=== PATIENT | female | born 1980 | race African-American/Black ===

== ENCOUNTER 2017-11-16 06:55 | Day surgery (SDC) | payer BC ==
[2017-11-14 15:48] LABS: BASOPHILS 0.3 % (0-2); EOSINOPHILS 0.8 % (0-7); HEMATOCRIT 31.5 % (36.0-48.0); HEMOGLOBIN 9.7 g/dL (12-16); IMMATURE GRANULOCYTES 0.1 % (0-5); LYMPHOCYTES 21.7 % (15-50); MCH 24.4 pg (26.0-34.0); MCHC 30.8 g/dL (31.0-37.0); MCV 79.1 fL (80.0-100.0); MEAN PLATELET VOLUME 11.2 fL (7.4-10.4); MONOCYTES 5.5 % (2-11); NEUTROPHILS 71.6 % (40-80); RBC 3.98 10x6/uL (4.00-5.40); RDW 15.6 % (11.5-14.5); WBC 7.3 10x3/uL (4.8-10.8)
[2017-11-14 15:53] LABS: PLATELET COUNT 162 10x3/uL (130-400)
[~2017-11-16] VITALS: Ht 162.6 cm; Wt 78.5 kg
--- NOTE | ~2017-11-16 | OP ---
PATIENT NAME: NATASHA LA MEDICAL RECORD: [id number] :78 LOCATION:[facility] ADMISSION DATE: SURGEON: TURNER GALVIN MD DATE OF OPERATION: 11/16/2017 PREOPERATIVE DIAGNOSIS: Endometrial thickening on ultrasound. POSTOPERATIVE DIAGNOSIS: Endometrial polyp. PROCEDURE: Hysteroscopy, dilation and curettage. SURGEON: Turner Galvin MD ESTIMATED BLOOD LOSS: Minimal. INTRAVENOUS FLUIDS: Per anesthesia record. HYSTEROSCOPIC FLUID LOSS: Approximately 100 cc of 0.9 normal saline. SPECIMENS: Endometrial curettings. FINDINGS: Multiple posterior endometrial polyps in the background of an otherwise normal appearing endometrial canal. COMPLICATIONS: None apparent. PROCEDURE IN DETAIL: The patient was taken to the operating room where general anesthesia was achieved without difficulty. The patient was prepped and draped in normal sterile fashion in the dorsal lithotomy position in the [facility]. At this point, the bladder was drained of approximately 50 cc of clear urine. Graves speculum was placed into the vagina. The cervix was identified and grasped on its anterior lip with a single tooth tenaculum. Uterus sounded to approximately 8-1/2 cm. At this point, the cervix was dilated to approximately 7-mm and hysteroscope was introduced into the uterine cavity. Bilateral ostia were identified. A broad-based posterior polyp was noted on posterior aspect of the endometrial canal. Hysteroscope was removed and a curette was then used to remove this polyp and to perform curettage in all 4 sections of the uterine of the endometrial canal. The tenaculum was removed with no bleeding noted from the tenaculum sites. The patient tolerated the procedure well, was transported to postanesthesia recovery stable without incident. TRANSINT:[id number] Voice Confirmation ID: [id number] DOCUMENT ID: [id number] TURNER GALVIN MD at 1757 CC: [id number] DICTATION DATE: 11/16/17 0955 LINEMARKER: 11/16/17 1014 [facility] 11/16/[address] [address]
[~2017-11-16 06:55] MED LIST: EZFE 200200 MG PO; MULTI-DAY VITAM1 TAB PO; PERCOCET 10/3251 TA1 PO; PRENATAL COMPLE1 TAB PO; PROTONIX40 MG PO
[2017-11-16 08:05] LABS: HCG URINE NEGATIVE (NEGATIVE)
[2017-11-16 08:06] VITALS: BP 134/76; Ht 162.6 cm; Wt 78.5 kg
== END 2017-11-16 11:40 | disposition home or self-care (01) ==
LOC: D.OPS 06:55 → D.PAN 09:00 → D.OPS 09:00
PROVIDERS: Anesthesiology; Obstetrics & Gynecology
DX: N84.0 Polyp of corpus uteri (principal); Z01.812 Encounter for preprocedural laboratory examination

== ENCOUNTER 2018-06-27 20:56 | Emergency (ER) | payer BC ==
[~2018-06-27] VITALS: Ht 162.6 cm; Wt 72.7 kg
[2018-06-27 20:59] VITALS: Ht 162.6 cm; Wt 72.7 kg
[2018-06-27] MEDS ORDERED: NORVASC5 MG PO (21:03)
[2018-06-27] MEDS ORDERED: PROTONIX40 MG PO (21:27)
[2018-06-27 21:36] LABS: BASOPHILS 0.3 % (0-2); EOSINOPHILS 0.6 % (0-7); HEMATOCRIT 33.4 % (36.0-48.0); HEMOGLOBIN 10.8 g/dL (12-16); IMMATURE GRANULOCYTES 0.3 % (0-5); LYMPHOCYTES 18.7 % (15-50); MCHC 32.3 g/dL (31.0-37.0); MCV 80.3 fL (80.0-100.0); MEAN PLATELET VOLUME 12.7 fL (7.4-10.4); MONOCYTES 8.3 % (2-11); NEUTROPHILS 71.8 % (40-80); PLATELET COUNT 138 10x3/uL (130-400); RBC 4.16 10x6/uL (4.00-5.40); RDW 15.1 % (11.5-14.5); WBC 7.7 10x3/uL (4.8-10.8)
[2018-06-27 21:50] LABS: ALBUMIN 3.1 g/dL (3.4-5.0); ALKALINE PHOSPHATASE 59 U/L (46-116); ALT (SGPT) 11 U/L (10-68); BILIRUBIN - TOTAL 0.47 mg/dL (0.2-1.3); CALC OSMOLALITY 276 mosm/kg (275-300); CALCIUM 8.7 mg/dL (8.5-10.1); CARBON DIOXIDE 25.7 mmol/L (21.0-32.0); CHLORIDE - SERUM 106 mmol/L (98-107); CREATININE - SERUM 0.8 mg/dL (0.6-1.3); GLUCOSE 106 mg/dL (74-106); LIPASE 101 U/L (73-393); POTASSIUM - SERUM 3.5 mmol/L (3.5-5.1); PROTEIN - SERUM 7.1 g/dL (6.4-8.2); SODIUM 140 mmol/L (136-145); UREA NITROGEN 8 mg/dL (7-18); eGFR NON AFRICAN AMERICAN 85 mL/min (90-120)
[2018-06-27] MEDS ORDERED: HYDROCODON-ACE1 EAC2 PO (22:16)
[2018-06-27] MEDS ORDERED: REGLAN10 MG PO (22:16)
[2018-06-27 22:29] VITALS: BP 129/78
== END 2018-06-27 22:29 | disposition home or self-care (01) ==
LOC: D.ER 20:56
PROVIDERS: Emergency Medicine
DX: R10.13 Epigastric pain (principal); K27.9 Peptic ulcer, site unspecified, unspecified as acute or chronic, without hemorrhage or perforation; K21.9 Gastro-esophageal reflux disease without esophagitis

== ENCOUNTER → 2019-11-19 08:41 | Outpatient (CLI) | payer BC ==
[2018-06-27 20:59] VITALS: BMI 27.5
[~2019-11-19 08:41] MED LIST changes: +HYDROCODON-ACE1 EAC2 PO; +NORVASC5 MG PO; +REGLAN10 MG PO
== END | disposition home or self-care (01) ==
LOC: D.US 08:41
PROVIDERS: ATTEND Family Medicine
DX: R10.84 Generalized abdominal pain (principal)

== ENCOUNTER 2020-07-25 16:07 | Inpatient (IN) | payer BC ==
[~2020-07-25] VITALS: Ht 162.6 cm; Wt 83.5 kg
[2020-07-25] VITALS (15 sets, daily range): BP systolic 97–139; BP diastolic 39–66; BMI 31.6
[2020-07-25 16:39] LABS: BASOPHILS 0.1 % (0-2); EOSINOPHILS 0.7 % (0-7); HEMATOCRIT 38.6 % (36.0-48.0); HEMOGLOBIN 12.4 g/dL (12-16); LYMPHOCYTES 1.7 % (15-50); MCH 25.7 pg (26.0-34.0); MCHC 32.1 g/dL (31.0-37.0); MCV 80.2 fL (80.0-100.0); MEAN PLATELET VOLUME 10.6 fL (7.4-10.4); MONOCYTES 1.7 % (2-11); NEUTROPHILS 95.8 % (40-80); PLATELET COUNT 147 10x3/uL (130-400); RBC 4.82 10x6/uL (4.00-5.40); RDW 15.1 % (11.5-14.5); WBC 12.5 10x3/uL (4.8-10.8)
[2020-07-25 16:46] LABS: APTT 23.9 SECONDS (22.8-39.4); INR 1.15 (0.85-1.17); PROTIME 13.6 SECONDS (11.6-15.0)
[2020-07-25 16:48] LABS: CALC OSMOLALITY 275 mosm/kg (275-300); CALCIUM 8.8 mg/dL (8.5-10.1); CARBON DIOXIDE 26.7 mmol/L (21.0-32.0); CHLORIDE - SERUM 103 mmol/L (98-107); GLUCOSE 124 mg/dL (74-106); POTASSIUM - SERUM 3.6 mmol/L (3.5-5.1); SODIUM 138 mmol/L (136-145); UREA NITROGEN 11 mg/dL (7-18); eGFR NON AFRICAN AMERICAN 65 mL/min (90-120)
[2020-07-25 17:04] LABS: ALBUMIN 3.5 g/dL (3.4-5.0); ALKALINE PHOSPHATASE 67 U/L (30-120); ALT (SGPT) 24 U/L (10-68); BILIRUBIN - TOTAL 0.78 mg/dL (0.2-1.3); CKMB 0.4 U/L (0.0-3.6); CREATINE KINASE 159 UL (21-215); PROTEIN - SERUM 7.8 g/dL (6.4-8.2)
[2020-07-25 17:08] LABS: TROPONIN-I < 0.017 ng/mL (0.000-0.060)
--- NOTE | 2020-07-25 18:13 | NUR ---
PT TO CT
[2020-07-25 18:45] LABS: UDS - AMPHET NEGATIVE QUAL (NEGATIVE); UDS - BARB NEGATIVE QUAL (NEGATIVE); UDS - BENZO NEGATIVE QUAL (NEGATIVE); UDS - COCAINE NEGATIVE QUAL (NEGATIVE); UDS - OPIATE NEGATIVE QUAL (NEGATIVE); UDS - PCP NEGATIVE QUAL (NEGATIVE); UDS - THC NEGATIVE QUAL (NEGATIVE)
[2020-07-25 19:15] LABS: NITRITE NEGATIVE (NEGATIVE)
--- NOTE | 2020-07-25 19:15 | NUR ---
REPORT GIVEN TO FILI FU
[2020-07-25 19:16] LABS: BACTERIA MANY HPF (NONE SEEN); BILIRUBIN NEGATIVE (NEGATIVE); KETONE NEGATIVE (NEGATIVE); UROBILINOGEN NORMAL mg/dL (< 2); WHITE CELLS - URINE 50 HPF (0-4)
--- NOTE | 2020-07-25 19:16 | NUR ---
LACTATED RINGERS INFUSING AT 999ML/H WITH 1300 ML REMAINING TO BE INFUSED ON SHIFT CHANGE
[2020-07-25] MEDS ORDERED: OMEPRAZOLE20 M1 PO (22:47)
[2020-07-26] VITALS (16 sets, daily range): BP systolic 89–115; BP diastolic 44–68
[2020-07-26 05:08] LABS: BASOPHILS 0.1 % (0-2); EOSINOPHILS 0.2 % (0-7); HEMATOCRIT 32.2 % (36.0-48.0); HEMOGLOBIN 10.4 g/dL (12-16); LYMPHOCYTES 1.2 % (15-50); MCH 26.1 pg (26.0-34.0); MCHC 32.4 g/dL (31.0-37.0); MCV 80.5 fL (80.0-100.0); MONOCYTES 2.9 % (2-11); NEUTROPHILS 95.6 % (40-80); PLATELET COUNT 125 10x3/uL (130-400); RDW 14.8 % (11.5-14.5)
--- NOTE | 2020-07-26 05:15 | NUR ---
DR MICHAEL PAGED REGARDING PERSISTENT HEADACHE DESPITE RECEIVING TYLENOL PER PT REQUEST. UPDATED REGARDING PT CONDITION, ORDER RECEIVED.
[2020-07-26 05:17] LABS: WBC 18.9 10x3/uL (4.8-10.8)
[2020-07-26 05:24] LABS: CALC OSMOLALITY 279 mosm/kg (275-300); CARBON DIOXIDE 23.2 mmol/L (21.0-32.0); CHLORIDE - SERUM 106 mmol/L (98-107); CREATININE - SERUM 1.2 mg/dL (0.6-1.3); GLUCOSE 149 mg/dL (74-106); POTASSIUM - SERUM 3.7 mmol/L (3.5-5.1); SODIUM 139 mmol/L (136-145); T4 THYROXIN - FREE 0.93 ng/dL (0.76-1.46); THYROID STIMULATING HORMONE 0.38 uIU/mL (0.36-3.74); UREA NITROGEN 10 mg/dL (7-18); eGFR NON AFRICAN AMERICAN 52 mL/min (90-120)
[2020-07-26 05:32] LABS: CALCIUM 7.7 mg/dL (8.5-10.1)
[2020-07-26 05:53] LABS: TROPONIN-I < 0.017 ng/mL (0.000-0.060)
--- NOTE | 2020-07-26 07:30 | NUR ---
REPORT RECEIVED. ASSESSMENT COMPLETE PER FLOW SHEET. VSS. PT DENIES NEEDS
--- NOTE | 2020-07-26 21:05 | NUR ---
+BC RECEIVED, PAGED MED PROFESSOR OF VISUAL ARTS TO NOTIFY
[2020-07-27] VITALS (7 sets, daily range): BP systolic 109–141; BP diastolic 52–74; Ht 162.6 cm; Wt 83.5 kg
[2020-07-27 06:38] LABS: BASOPHILS 0 % (0-2); HEMATOCRIT 32.6 % (36.0-48.0); HEMOGLOBIN 10.4 g/dL (12-16); LYMPHOCYTES 3.1 % (15-50); MCH 25.5 pg (26.0-34.0); MCV 79.7 fL (80.0-100.0); MEAN PLATELET VOLUME 10.7 fL (7.4-10.4); MONOCYTES 2.5 % (2-11); NEUTROPHILS 91.4 % (40-80); RBC 4.09 10x6/uL (4.00-5.40); RDW 15.3 % (11.5-14.5); WBC 14.5 10x3/uL (4.8-10.8)
[2020-07-27 06:50] LABS: PLATELET COUNT 95 10x3/uL (130-400)
[2020-07-27 06:52] LABS: ANION GAP 14.7 mmol/L (8-16); CALCIUM 7.2 mg/dL (8.5-10.1); POTASSIUM - SERUM 3.7 mmol/L (3.5-5.1)
[2020-07-27 06:54] LABS: CREATININE - SERUM 3.5 mg/dL (0.6-1.3)
--- NOTE | 2020-07-27 08:36 | NUR ---
PATIENT AAOX4 SITTING AT THE END OF THE BED, RESP EVEN AND NON LABORED, NO S/S OF DISTRESS, MEDICATIONS ADMINISTERED AND NO COMPLICATIONS, IV ANTIBIOTICS INFUSING, ICE AND SPRITE PROVIDED, NO FURTHER NEEDS AT THIS TIME, ERIC SANON
[2020-07-27 09:51] LABS: PLATELET ESTIMATE DECREASED
[2020-07-27 09:53] LABS: ANISOCYTOSIS OCC; ROULEAUX OCC
--- NOTE | 2020-07-27 13:57 | NUR ---
PATIENT PUT ON STRICT I/O PER DR CEBALLOS DUE TO LOW URINE OUTPUT AND ELEVATED CREATINE LEVELS, PATIENT ALSO IS BEING TREATED FOR ORAL THRUSH
--- NOTE | 2020-07-27 23:33 | NUR ---
pt c/o itching and feels she may have hives on her BUE since receiving her morphine earlier today, requests benadryl that she previously received for itching. no acute distress noted, no WHEEZING OR SOB. KAYLA NOYOLA MEDICAL TECHNOLOGIST MICROBIOLOGY PER PT REQUEST. SPOKE TO DR JEFFERSON ORDER RECEIVED FOR ATARAX 25 MG PO Q 6 HR PRN ITCHING/ANXIETY/INSOMNIA
[2020-07-28 04:43] VITALS: BP 152/76
--- NOTE | 2020-07-28 07:25 | NUR ---
PATIENT AAOX4, RESP EVEN AND N0N LABORED, NO S/S OF DISTRESS, MEDICATIONS ADMINSITERED, IV FLUIDS AND ANTIBIOTICS INFUSING WITH NO COMPLICATIONS, NO FURTHER NEEDS AT THIS TIME, CLIR,BLP
[2020-07-28 07:27] LABS: BASOPHILS 0.3 % (0-2); EOSINOPHILS 3.3 % (0-7); LYMPHOCYTES 4.9 % (15-50); MCHC 32.4 g/dL (31.0-37.0); MCV 80.3 fL (80.0-100.0); MEAN PLATELET VOLUME 11.2 fL (7.4-10.4); MONOCYTES 3.4 % (2-11); NEUTROPHILS 88.1 % (40-80); PLATELET COUNT 104 10x3/uL (130-400); RBC 3.86 10x6/uL (4.00-5.40); RDW 15.2 % (11.5-14.5); WBC 13.7 10x3/uL (4.8-10.8)
--- NOTE | 2020-07-28 07:32 | NUR ---
HOLDING VANC DUE TO ELEVATED VANC TROUGH
[2020-07-28 07:48] LABS: ANION GAP 14.4 mmol/L (8-16); CALCIUM 7.8 mg/dL (8.5-10.1); MAGNESIUM - SERUM 1.6 mg/dL (1.8-2.4); PHOSPHOROUS 2.2 mg/dL (2.5-4.9); POTASSIUM - SERUM 3.4 mmol/L (3.5-5.1); THYROID STIMULATING HORMONE 4.09 uIU/mL (0.36-3.74)
[2020-07-28 07:49] LABS: CREATININE - SERUM 5.7 mg/dL (0.6-1.3)
--- NOTE | 2020-07-28 07:56 | HP ---
PATIENT: NATASHA LA MEDICAL RECORD: [id number] ACCOUNT: [id number] LOCATION:[address] : [birth year] ADMISSION DATE: 07/25/20 PCP: HOMAR ARREDONDO MD HISTORY AND PHYSICAL EXAMINATION REASON FOR ADMISSION: Weakness and fast heart rate and low back pain. HISTORY OF PRESENT ILLNESS: The patient is a 40-year-old female with previous history of GERD and hypertension, followed by Dr. Akshat Arredondo. She states she felt well until today when she started having some vague low back pain. She said she always has a UTI and thought she had more urinary symptoms. She had no fever, nausea or vomiting. She went to a walk-in clinic for these complaints and was found to be hypotensive and tachycardic with a heart rate in the 140s. For that reason, she was referred to the ED. She denies shortness of breath, chest pain, vomiting, diarrhea. She has had no chills. She had an echocardiogram 2 years ago that showed mitral insufficiency, mild to moderate. She says she does not see a wire harness assembler routinely. PAST MEDICAL HISTORY: Essential hypertension, GERD, history of peptic ulcer disease, moderate mitral regurgitation, history of a cervical polyp, 5, para 4, history of Helicobacter pylori positive gastritis. PAST SURGICAL HISTORY: Tubal ligation, endometrial polyp removed in 06/2017. FAMILY HISTORY: Father is alive, has hypertension. Mother is alive, has diabetes and hypertension. Sister has hypertension. Brother with hypertension. SOCIAL HISTORY: She is . 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 She is a nonsmoker, nondrinker. CURRENT MEDICATIONS: Protonix 20 mg a day, amlodipine 5 mg a day and Robaxin 500 mg t.i.d. p.r.n. low back pain. REVIEW OF SYSTEMS: GENERAL: She has felt fatigued today, very weak. She denies fever. HEENT: No recent visual change, sinus congestion. Has had a mild headache, but no neck pain. No visual change. CARDIAC: Has noticed her heart was racing somewhat this afternoon. Denies exertional rest chest pain, claudication, edema or history thereof. GASTROINTESTINAL: She has had no nausea or vomiting today. Does have a history of reflux. No change in stools or blood per rectum. No history of hepatitis. ENDOCRINE: Denies polyuria, polydipsia, heat or cold intolerance. NEUROLOGIC: No history of stroke, TIA, vascular headaches. She has no headache currently. INTEGUMENT: No rash or itching. GENITOURINARY: Has intermittent UTIs and currently thinks that she has one with urgency and some dysuria. PSYCHIATRIC: Denies depressed mood. PHYSICAL EXAMINATION: VITAL SIGNS: Heart rate is 140 and regular, temperature is 98.8 Fahrenheit, respirations are 18. Blood pressure was 97/57 initially; now after 2 liters of fluid, it is 124/80. Her heart rate is not decreased. Pulse is 99. GENERAL: The patient is somewhat lethargic after being giving morphine. HEENT: normocephalic. Eyes are clear. Sclerae are nonicteric. Oropharynx HISTORY AND PHYSICAL [id number] NATASHA LA S unremarkable. Mucous membranes are not dry. NECK: Supple throughout. No bruits. HEART: Tachycardic without murmur or gallop. LUNGS: Clear. ABDOMEN: Soft, nontender throughout. Bowel sounds are active. No CVA tenderness noted. PELVIC: Deferred. EXTREMITIES: Shows 1+ pretibial edema, otherwise unremarkable. No cords are noted. Negative Homans. NEUROLOGIC: The patient is oriented to person, place and time. No motor or sensory deficits are appreciated. Her neck is supple. LABORATORY DATA: Shows a white count of 12.5 thousand, H&H of 12.4 and 38.6 respectively. Chemistry shows BUN and creatinine of 11 and 1.0. Lactic acid is 1.9. Glucose is 124. Liver functions are normal. Cardiac enzymes are negative. Toxicology in the urine is negative. D-dimer is 1.78. Urinalysis is cloudy, 2+ leukocyte esterase, 50 white cells per high power field, 5-10 squamous cells, many bacteria. Chest x-ray is unremarkable. CT of the thorax was performed due to elevated D-dimer and tachycardia, which shows no pulmonary emboli. Heart and thoracic aorta appeared normal. Esophagus was normal size. Small sliding hiatal hernia was noted. Lungs were clear. No pneumothorax. Fatty infiltration of the liver is noted. Otherwise, unremarkable. ASSESSMENT: 1. Urinary tract infection with possible sepsis. 2. Tachycardia, possibly secondary to #1. 3. Hypotension, improving with IV fluids. 4. Headache without signs of meningismus. 5. Leukocytosis. 6. History of hypertension, currently hypotensive. PLAN: The patient will be admitted to the ICU for close monitoring. Continue IV fluids per sepsis protocol. She will be loaded with antibiotics currently. If tachycardia is not improved, we will have Cardiology consult and check thyroid functions as well. TRANSINT:[id number] Voice Confirmation ID: [id number] DOCUMENT ID: [id number] GEOVANNY MICHAEL MD at 0756 CC: [id number] DICTATION DATE: 07/25/202029 DATABASE ENGINEER: 07/28/20 0018 ADM IN [facility] [address] [id number]
[2020-07-28 08:00] VITALS: BP 146/73
[2020-07-28 10:24] LABS: COMPLEMENT C4 21.9 mg/dL (17.4-52.2)
--- NOTE | 2020-07-28 12:08 | NUR ---
I have reviewed this patient and I concur with the Shift Assessment completed by the Licensed Practical Nurse today this shift.
--- NOTE | 2020-07-28 16:38 | NUR ---
PATIENT STATED SHE FOUND BEDBUGS IN HER ROOM, PATIENT BATHED AND REFUSED TO GO BACK IN HER ROOM, EVS AND INFECTION CONTROL NOTIFIED, PATIENT MOVIED FROM ROOM 2133 TO 2106.
[2020-07-28 21:00] VITALS: BP 151/77
[2020-07-28 23:36] VITALS: BP 148/70
--- NOTE | 2020-07-29 01:07 | NUR ---
07/28/20 @ 1999 PT RESTING QUIETLY IN BED. HAS VISIBLE LITTLE WHITE BUMPS ON BUE. UNSURE OF CAUSE. BENADRYL GIVEN PER PT REQUEST.
[2020-07-29 04:00] VITALS: BP 145/70
[2020-07-29 06:23] VITALS: BP 154/70
[2020-07-29 07:12] LABS: BASOPHILS 0.3 % (0-2); EOSINOPHILS 3.6 % (0-7); HEMATOCRIT 29.8 % (36.0-48.0); HEMOGLOBIN 9.6 g/dL (12-16); LYMPHOCYTES 11.4 % (15-50); MCH 25.8 pg (26.0-34.0); MCHC 32.3 g/dL (31.0-37.0); MEAN PLATELET VOLUME 10.7 fL (7.4-10.4); MONOCYTES 7.6 % (2-11); NEUTROPHILS 77.1 % (40-80); PLATELET COUNT 111 10x3/uL (130-400); RBC 3.72 10x6/uL (4.00-5.40); RDW 15.1 % (11.5-14.5)
[2020-07-29 07:16] LABS: ANTI-STREPTOLYSIN O 27.9 IU/mL (0.0-200.0)
[2020-07-29 07:30] LABS: ANION GAP 15.6 mmol/L (8-16); CALCIUM 8.3 mg/dL (8.5-10.1); CARBON DIOXIDE 22.1 mmol/L (21.0-32.0); CREATININE - SERUM 6.3 mg/dL (0.6-1.3); PHOSPHOROUS 2.5 mg/dL (2.5-4.9); POTASSIUM - SERUM 3.7 mmol/L (3.5-5.1)
[2020-07-29 07:33] LABS: WBC 9.8 10x3/uL (4.8-10.8)
[2020-07-29 07:40] VITALS: BP 147/73
--- NOTE | 2020-07-29 07:40 | NUR ---
Lying in bed, awake/alert/oriented, T/R self ad juan, cont of B/B with BRPs per self ad juan, denies pain/other discomfort at this time, call light/phone/water within reach, no s/s of acute distress observed.
[2020-07-29 09:12] LABS: ANA REFLEX - DIRECT Negative (Negative)
[2020-07-29 11:36] VITALS: BP 139/71
[2020-07-29 13:12] LABS: SPE - A/G RATIO 0.9 (0.7-1.7); SPE - ALBUMIN 2.6 g/dL (2.9-4.4); SPE - ALPHA-1 GLOBULIN 0.4 g/dL (0.0-0.4); SPE - ALPHA-2 GLOBULIN 0.8 g/dL (0.4-1.0); SPE - BETA GLOBULIN 0.8 g/dL (0.7-1.3); SPE - GAMMA GLOBULIN 0.9 g/dL (0.4-1.8); SPE - M-SPIKE Not Observed g/dL (Not Observed); SPE - TOTAL PROTEIN 5.4 g/dL (6.0-8.5)
--- NOTE | 2020-07-29 13:14 | NUR ---
Nutrition Follow-up: Ate >=50% of breakfast this AM. Thrush improving. Noted renal function worsening; possible renal biopsy if it does not improve. Diet: Regular, Ensure TID No new wt; last wt: 184# (07/27) Labs noted: Na 142, K+ 3.7, BUN 33, Cre 6.3, GFR 9, Ca 8.3, PO4 2.5 Meds noted: Nystatin, Zofran, Florajen, Protonix -Encourage PO intake and honor food preferences within diet restrictions. -Decrease Ensure to BID 2/2 improved PO intake and worsening renal function. -Need new wt. -RD follow-up: 08/03
[2020-07-29 19:16] VITALS: BP 147/77
--- NOTE | 2020-07-29 22:40 | NUR ---
1999- RESTING IN BED. C/O LOWER BACK HURTING MORE TODAY & STATES THAT HER URINE IS DARKER THAN IT HAD BEEN. APAP GIVEN FOR BACK PAIN. UOP-1300ML
[2020-07-29 23:43] VITALS: BP 146/64
[2020-07-30 03:45] VITALS: BP 150/79
[2020-07-30 06:44] LABS: BASOPHILS 0.3 % (0-2); EOSINOPHILS 3.9 % (0-7); HEMATOCRIT 27.6 % (36.0-48.0); LYMPHOCYTES 17.7 % (15-50); MCH 25.7 pg (26.0-34.0); MCHC 32.7 g/dL (31.0-37.0); MCV 78.7 fL (80.0-100.0); MEAN PLATELET VOLUME 10.5 fL (7.4-10.4); MONOCYTES 10.5 % (2-11); NEUTROPHILS 67.6 % (40-80); PLATELET COUNT 124 10x3/uL (130-400); RBC 3.51 10x6/uL (4.00-5.40); RDW 15.3 % (11.5-14.5); WBC 8.3 10x3/uL (4.8-10.8)
[2020-07-30 06:52] LABS: ANION GAP 14.7 mmol/L (8-16); CALCIUM 8.3 mg/dL (8.5-10.1); CREATININE - SERUM 5.9 mg/dL (0.6-1.3); PHOSPHOROUS 3.3 mg/dL (2.5-4.9); POTASSIUM - SERUM 3.7 mmol/L (3.5-5.1); VANCOMYCIN - RANDOM 26.3 ug/mL (10.0-20.0)
[2020-07-30 08:06] VITALS: BP 145/87
[2020-07-30 09:13] LABS: ANTI-GLOMERULAR BASMENT MEMBRN 3 units (0-20)
[2020-07-30 11:25] VITALS: BP 172/82
--- NOTE | 2020-07-30 12:22 | NUR ---
Called Dr. Multani who states he will call me back.
--- NOTE | 2020-07-30 12:30 | NUR ---
Dr. Arredondo returned call nd gave new order for Norvasc 5mg PO daily
[2020-07-30 15:12] LABS: ANCA - ANTIMYELOPEROXIDASE <9.0 U/mL (0.0-9.0); ANCA - ANTIPROTEINASE 3 11.5 U/mL (0.0-3.5); ANCA - ATYPICAL <1:20 titer (Neg:<1:20); ANCA - CYTOPLASMIC <1:20 titer (Neg:<1:20); ANCA - PERINUCLEAR <1:20 titer (Neg:<1:20)
[2020-07-30 16:57] VITALS: BP 150/79
[2020-07-30 17:53] LABS: BILIRUBIN NEGATIVE (NEGATIVE); KETONE NEGATIVE (NEGATIVE); NITRITE NEGATIVE (NEGATIVE); UROBILINOGEN NORMAL mg/dL (< 2)
[2020-07-30 20:04] VITALS: BP 138/70
[2020-07-31 00:16] VITALS: BP 130/75
[2020-07-31 04:30] VITALS: BP 139/73
--- NOTE | 2020-07-31 07:00 | NUR ---
Lying in bed on left side, awake/alert/oriented, T/R self ad juan, cont of B/B with BRPs per self ad juan, denies pain/other discomfort at this time, call light/phone/water within reach, no s/s of acute distress observed.
[2020-07-31 07:01] LABS: BASOPHILS 0.3 % (0-2); EOSINOPHILS 3.8 % (0-7); HEMATOCRIT 28.5 % (36.0-48.0); HEMOGLOBIN 9.3 g/dL (12-16); LYMPHOCYTES 16.2 % (15-50); MCH 25.5 pg (26.0-34.0); MCHC 32.5 g/dL (31.0-37.0); MCV 78.5 fL (80.0-100.0); MEAN PLATELET VOLUME 10.4 fL (7.4-10.4); MONOCYTES 11.4 % (2-11); NEUTROPHILS 68.3 % (40-80); PLATELET COUNT 127 10x3/uL (130-400); RBC 3.64 10x6/uL (4.00-5.40); RDW 15.3 % (11.5-14.5); WBC 7.8 10x3/uL (4.8-10.8)
[2020-07-31 08:13] VITALS: BP 148/66
[2020-07-31 08:30] LABS: ANION GAP 16.6 mmol/L (8-16); CALCIUM 8.4 mg/dL (8.5-10.1); POTASSIUM - SERUM 3.6 mmol/L (3.5-5.1)
[2020-07-31 08:35] LABS: PHOSPHOROUS 4.3 mg/dL (2.5-4.9)
[2020-07-31] MEDS ORDERED: LEVAQUIN750 MG PO (12:17)
[2020-07-31 12:34] LABS: % SATURATION 27 % (15-55); IRON 80 ug/dl (35-150); TOTAL IRON BIND CAPACITY 286 ug/dl (260-445); UNSAT IRON BIND CAPACITY 206 ug/dl (150-375)
--- NOTE | 2020-07-31 15:03 | NUR ---
Provided discharge instructions/education to which pt voiced understanding, discontinued IV access/cardiac telemetry monitoring.
--- NOTE | 2020-07-31 15:10 | NUR ---
DC'd home in stable condition via w/c accompanied by hospital staff and family member, no s/s of acute distress observed.
[2020-07-31 15:58] VITALS: BP 113/78
--- NOTE | 2020-07-31 18:25 | MORECARE ---
CASE MANAGEMENT DISCHARGE SUMMARY PATIENT: NATASHA LA UNIT: [id number] ADM DATE: 07/25/20 AGE: 40 : 79 SEX: F ROOM/BED: D.210 AUTHOR: CLEOPATRA,DOC PHYSICIAN: REFERRING PHYSICIAN: GEOVANNY MICHAEL MD DATE OF SERVICE: 07/31/20 Case Management Discharge Planning Summary DCP REVIEW SUMMARY ANTICIPATED D/C DATE: 07/31/2020 EXPECTED LOS : 6 CASE STATUS: DCP Initiated INITIAL REVIEW: 07/25/2020 INITIAL REVIEWER: Yordy Marmolejo FINAL DISCHARGE DISPOSITION: : FINAL REVIEWER: FINAL REVIEW DATE: DCP Focus Questions & Answers QUESTION: ANSWER : PATIENT: NATASHA LA ENCOUNTER: [id number] MEDICAL RECORD#: [id number] ADMISSION DATE: 07/25/2020 DISCHARGE DATE: 07/31/2020 ATTENDING MD: GEOVANNY ESTRADA : AGE: 40 MARITAL STATUS: M DC PLAN ID: [id number] FACILITY: [facility] PRINTED ON: 07/31/20 18:25 CT All edits/amendments must be made on the electronic document DICTATION DATE: 07/31/201824 [employer] PH[employer]GRAPHS: DM 07/31/201824 RPT#: [id number] DC DATE:07/31/20 STATUS: DIS IN [facility] [address] [place] [address] END OF REPORT
--- NOTE | 2020-07-31 18:35 | MORECARE ---
CASE MANAGEMENT DISCHARGE SUMMARY PATIENT: NATASHA LA UNIT: [id number] ADM DATE: 07/25/20 AGE: 40 : 79 SEX: F ROOM/BED: D.7336 AUTHOR: PHONG WHELAN PHYSICIAN: REFERRING PHYSICIAN: GEOVANNY MICHAEL MD DATE OF SERVICE: 07/31/20 Case Management Discharge Planning Summary COMMENTS ENTERED DATE: 07/31/20 18:25 CT COMMENT TYPE: Discharge Planning REVIEWER: Yordy Marmolejo CM met with patient to complete DC plan and to evaluate needs. Patient lives independently with her spouse, Alfie La, . Patient stated that her home is safe and has electricity and running water. Patient stated that the home has 0 steps to enter and she is able to enter the home without difficulty. Patient stated that she has no problems paying for medications and she fills her medications at [facility] in [place]. Patient stated that her primary care physician is Dr. Arredondo. At discharge, the patient plans to return home and feels this is a safe discharge. CM discussed availability of home health, rehab services, and medical equipment. Patient declined HHS, SNF, IPR, and DME. Patient voiced no other needs at this time and is satisfied with DC plan. Transportation provider at discharge will be with her spouse, Alfie. CM will continue to follow and will assist as needed with dc plans/needs. [facility] REVIEW SUMMARY ANTICIPATED D/C DATE: 07/31/2020 EXPECTED LOS : 6 CASE STATUS: DCP Initiated INITIAL REVIEW: 07/25/2020 INITIAL REVIEWER: Yordy Marmolejo FINAL DISCHARGE DISPOSITION: : FINAL REVIEWER: FINAL REVIEW DATE: [facility] Focus Questions & Answers NVP Evaluation QUESTION: ANSWER Patient gives permission to discuss discharge plans with: (name, relationship and number) : spouse, Alfie La, Patient's ability to cope with chronic illness : d. No chronic illness Patient's current cognitive status: : *Oriented to person, place, situation, time and present Family / Caregiver's ability to cope with chronic illness: : a. Adequate (ability to meet patient's medical needs, ensures patient attends medical appts.) Patient and/or caregiver agree upon recommended discharge plan? : Yes Physical Status: : Independent with ADL's Family / Caregiver's ability to cope with chronic illness: : a. Adequate (ability to meet patient's medical needs, ensures patient attends medical appts.) Functional screen assessment: : Basic needs can adequately be met by self Does the patient have the ability to pay for or attain post discharge needs / services? : Yes Living Arrangements: : Home with Spouse/Significant Other Is there a likelihood that the patient will require additional services to return to the preadmission environment? : No Equipment needed for post hospitalization: : None Baseline cognitive status: : *Oriented to person, place, situation, time and present Patient with capacity for self-care or can be cared for in same environment as prior to hospitalization? : Yes Physical environment modification needed / anticipated for discharge: : No Medication Management: : Patient states can afford medications Pharmacy name(s): : [facility] in [place], [place] Does Patient have transportation to get home and to follow-up medical appointments when discharged from the hospital? : Yes Would patient like to participate in any Care Coordination programs (if applicable): : Not applicable Does the patient have electricity at home? : Yes Does the patient have running water in their house? : Yes Equipment in use: : None Mental health screen: : No mental health history DCP Re-evaluation QUESTION: ANSWER Would patient like to participate in any Care Coordination programs (if applicable): : Not applicable PATIENT: NATASHA LA ENCOUNTER: [id number] MEDICAL RECORD#: [id number] ADMISSION DATE: 07/25/2020 DISCHARGE DATE: 07/31/2020 ATTENDING MD: GEOVANNY ESTRADA : AGE: 40 MARITAL STATUS: M DC PLAN ID: [id number] FACILITY: [facility] PRINTED ON: 07/31/20 18:35 CT All edits/amendments must be made on the electronic document DICTATION DATE: 07/31/201834 ASPHALT DAUBER: DM 07/31/201834 RPT#: [id number] DC DATE:07/31/20 STATUS: DIS IN [facility] [address] [place] [address] END OF REPORT
--- NOTE | 2020-08-02 12:11 | MORECARE ---
CASE MANAGEMENT DISCHARGE SUMMARY PATIENT: NATASHA LA UNIT: [id number] ADM DATE: 07/25/20 AGE: 40 : 79 SEX: F ROOM/BED: D.2104 AUTHOR: PHONG WHELAN PHYSICIAN: REFERRING PHYSICIAN: GEOVANNY MICHAEL MD DATE OF SERVICE: 08/02/20 Case Management Discharge Planning Summary COMMENTS ENTERED DATE: 07/31/20 18:25 CT COMMENT TYPE: Discharge Planning REVIEWER: Yordy Marmolejo CM met with patient to complete DC plan and to evaluate needs. Patient lives independently with her spouse, Alfie La, . Patient stated that her home is safe and has electricity and running water. Patient stated that the home has 0 steps to enter and she is able to enter the home without difficulty. Patient stated that she has no problems paying for medications and she fills her medications at [facility] in [place]. Patient stated that her primary care physician is Dr. Arredondo. At discharge, the patient plans to return home and feels this is a safe discharge. CM discussed availability of home health, rehab services, and medical equipment. Patient declined HHS, SNF, IPR, and DME. Patient voiced no other needs at this time and is satisfied with DC plan. Transportation provider at discharge will be with her spouse, Alfie. CM will continue to follow and will assist as needed with dc plans/needs. CTP REVIEW SUMMARY ANTICIPATED D/C DATE: 07/31/2020 EXPECTED LOS : 6 CASE STATUS: DCP Initiated INITIAL REVIEW: 07/25/2020 INITIAL REVIEWER: Yordy Marmolejo FINAL DISCHARGE DISPOSITION: : FINAL REVIEWER: FINAL REVIEW DATE: [facility] Focus Questions & Answers DCP Evaluation QUESTION: ANSWER Patient and/or caregiver agree upon recommended discharge plan? : Yes Family / Caregiver's ability to cope with chronic illness: : a. Adequate (ability to meet patient's medical needs, ensures patient attends medical appts.) Patient's current cognitive status: : *Oriented to person, place, situation, time and present Patient's ability to cope with chronic illness : d. No chronic illness Patient gives permission to discuss discharge plans with: (name, relationship and number) : spouse, Alfie La, Does the patient have the ability to pay for or attain post discharge needs / services? : Yes Functional screen assessment: : Basic needs can adequately be met by self Family / Caregiver's ability to cope with chronic illness: : a. Adequate (ability to meet patient's medical needs, ensures patient attends medical appts.) Physical Status: : Independent with ADL's Equipment needed for post hospitalization: : None Is there a likelihood that the patient will require additional services to return to the preadmission environment? : No Living Arrangements: : Home with Spouse/Significant Other Patient with capacity for self-care or can be cared for in same environment as prior to hospitalization? : Yes Baseline cognitive status: : *Oriented to person, place, situation, time and present Physical environment modification needed / anticipated for discharge: : No Medication Management: : Patient states can afford medications Pharmacy name(s): : [facility] in [place], [place] Does Patient have transportation to get home and to follow-up medical appointments when discharged from the hospital? : Yes Would patient like to participate in any Care Coordination programs (if applicable): : Not applicable Does the patient have electricity at home? : Yes Does the patient have running water in their house? : Yes Equipment in use: : None Mental health screen: : No mental health history DCP Re-evaluation QUESTION: ANSWER Would patient like to participate in any Care Coordination programs (if applicable): : Not applicable PATIENT: NATASHA LA ENCOUNTER: [id number] MEDICAL RECORD#: [id number] ADMISSION DATE: 07/25/2020 DISCHARGE DATE: 07/31/2020 ATTENDING MD: GEOVANNY ESTRADA : AGE: 40 MARITAL STATUS: M DC PLAN ID: [id number] FACILITY: [facility] PRINTED ON: 08/02/20 12:11 CT All edits/amendments must be made on the electronic document DICTATION DATE: 08/02/20 121 DIRECTOR TITLE: DM 08/02/20 121 RPT#: [id number] DC DATE:07/31/20 STATUS: DIS IN [facility] [address] [place] [address] END OF REPORT
== END 2020-07-31 15:10 | disposition home or self-care (01) | DRG 872 ==
LOC: D.ER 16:07 → D.EDHOLD 20:38 → D.ICU 20:38 → D.M2 20:38 → D.ICU 20:56 → D.M2 07-26 14:42
PROVIDERS: Family Medicine; Internal Medicine Nephrology; ADMIT Family Medicine; ATTEND Family Medicine
DX: A41.9 Sepsis, unspecified organism (principal); N17.9 Acute kidney failure, unspecified; N39.0 Urinary tract infection, site not specified; B37.0 Candidal stomatitis; D69.6 Thrombocytopenia, unspecified; R51.9 Headache, unspecified; I10 Essential (primary) hypertension; K21.9 Gastro-esophageal reflux disease without esophagitis; K31.84 Gastroparesis

== ENCOUNTER 2020-08-30 19:21 | Emergency (ER) | payer BC ==
[~2020-08-30] VITALS: Ht 162.6 cm; Wt 78.2 kg
[~2020-08-30 19:21] MED LIST changes: +LEVAQUIN750 MG PO; +OMEPRAZOLE20 M1 PO
[2020-08-30 19:28] VITALS: Ht 162.6 cm; Wt 78.2 kg
[2020-08-30 20:03] LABS: BASOPHILS 0.4 % (0-2); EOSINOPHILS 0.2 % (0-7); HEMATOCRIT 34.5 % (36.0-48.0); LYMPHOCYTES 21.7 % (15-50); MCH 25.7 pg (26.0-34.0); MCHC 31.8 g/dL (31.0-37.0); MCV 80.7 fL (80.0-100.0); MEAN PLATELET VOLUME 10.8 fL (7.4-10.4); MONOCYTES 6.6 % (2-11); NEUTROPHILS 71.1 % (40-80); PLATELET COUNT 109 10x3/uL (130-400); RBC 4.27 10x6/uL (4.00-5.40); RDW 15.9 % (11.5-14.5); WBC 5.3 10x3/uL (4.8-10.8)
[2020-08-30 20:16] LABS: CALC OSMOLALITY 279 mosm/kg (275-300); CALCIUM 8.3 mg/dL (8.5-10.1); CARBON DIOXIDE 24.5 mmol/L (21.0-32.0); CHLORIDE - SERUM 104 mmol/L (98-107); CREATININE - SERUM 1.3 mg/dL (0.6-1.3); GLUCOSE 121 mg/dL (74-106); POTASSIUM - SERUM 3.5 mmol/L (3.5-5.1); SODIUM 139 mmol/L (136-145); UREA NITROGEN 14 mg/dL (7-18); eGFR NON AFRICAN AMERICAN 48 mL/min (90-120)
[2020-08-30 20:30] LABS: ALBUMIN 3.4 g/dL (3.4-5.0); ALKALINE PHOSPHATASE 58 U/L (30-120); ALT (SGPT) 21 U/L (10-68); BILIRUBIN - TOTAL 0.33 mg/dL (0.2-1.3); C-REACTIVE PROTEIN 2.2 mg/dL (0.0-0.9); LIPASE 95 U/L (73-393); MAGNESIUM - SERUM 1.7 mg/dL (1.8-2.4); PRO BNP 6 pg/mL (0-125); PROTEIN - SERUM 7.6 g/dL (6.4-8.2); THYROID STIMULATING HORMONE 1.37 uIU/mL (0.36-3.74); TROPONIN-I < 0.017 ng/mL (0.000-0.060)
[2020-08-30 23:06] LABS: BILIRUBIN NEGATIVE (NEGATIVE); KETONE 1+ mg/dL (< 1+); NITRITE NEGATIVE (NEGATIVE); SQUAMOUS EPITHELIAL 2 HPF (0-4); UROBILINOGEN NORMAL mg/dL (< 2); WHITE CELLS - URINE 16 HPF (0-4)
[2020-08-30 23:09] LABS: UDS - AMPHET NEGATIVE QUAL (NEGATIVE); UDS - BARB NEGATIVE QUAL (NEGATIVE); UDS - BENZO NEGATIVE QUAL (NEGATIVE); UDS - COCAINE NEGATIVE QUAL (NEGATIVE); UDS - OPIATE NEGATIVE QUAL (NEGATIVE); UDS - PCP NEGATIVE QUAL (NEGATIVE); UDS - THC NEGATIVE QUAL (NEGATIVE)
[2020-08-31 00:15] VITALS: BP 151/80
== END 2020-08-31 00:15 | disposition home or self-care (01) ==
LOC: D.ER 19:21
PROVIDERS: Family Medicine
DX: Z20.822 Contact with and (suspected) exposure to COVID-19 (principal); I10 Essential (primary) hypertension; K21.9 Gastro-esophageal reflux disease without esophagitis

== ENCOUNTER → 2020-09-01 13:19 | Day surgery (SDC) | payer BC ==
[~2020-09-01] VITALS: Ht 162.6 cm; Wt 78.2 kg
[2020-09-01 14:15] VITALS: BP 124/75; Ht 162.6 cm; Wt 78.2 kg
--- NOTE | 2020-09-01 14:41 | NUR ---
PATIENT HERE FOR BAM INFUSION. ON ARRIVAL, VS TAKEN, IV STARTED AFTER 3 ATTEMPTS IN RIGHT AC, 22 GAUGE . INFUSION STARTED AT 220 ML/HR PER IV INFUSION PUMP.
--- NOTE | 2020-09-01 15:17 | NUR ---
1510 INFUSION COMPLETED, FLUSED WITH SALINE. IV REMOVED WITH CATH INTACT. WILL MONITOR FOR 1 HOUR.
--- NOTE | 2020-09-01 17:17 | NUR ---
3002 DISCHARGED AMBULATORY WITH NURSE. PATIENT TOLERATED INFUSION WITHOUT PROBLEMS
== END | disposition home or self-care (01) ==
LOC: D.OPS 12:00
PROVIDERS: ATTEND Nurse Practitioner
DX: Z23 Encounter for immunization (principal); N28.9 Disorder of kidney and ureter, unspecified; R53.1 Weakness; R53.83 Other fatigue; R05 Cough; R11.0 Nausea; R06.02 Shortness of breath; D50.9 Iron deficiency anemia, unspecified; Z68.22 Body mass index [BMI] 22.0-22.9, adult; I10 Essential (primary) hypertension